=== PATIENT | female | born 1930 | race Caucasian/White ===

== ENCOUNTER 2019-05-28 15:36 | Inpatient (IN) | payer OTHER ==
[~2019-05-28] VITALS: Ht 162.6 cm; Wt 54.6 kg
--- NOTE | 2019-05-28 16:03 | NUR ---
PT BIBA FROM HOME DUE TO FAMILY STS PT HAS AN UNWITNESS FALL. PER FAMILY PT HAS NORMAL "CONFUSION" BUT SEEMED MORE CONFUSED TODAY. PT ARRIVED WITH C-COLLER DUE TO PT STS THAT SHE HAS FAUSTINO ARM NUMBNESS. PER PT DENIES ANY CHEST PAIN/ABDOMINAL PAIN. PT DENIES ANY DIZZINESS AT THIS TIME. PT IS ALERT AND ORIENTED SPEAKING IN CLEAR SLOW SENTENCES. PT HAS NOTED MASS TO TOP OF HEAD. 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 PT HAS GENERALIZED WEAKNESS SHE CAN TURN SLOWLY. VSS. RESP E/U. PT PLACED ON CM. WILL CONTINUE TO MONITOR.
--- NOTE | 2019-05-28 16:03 | NUR ---
PT +INCONTINENTS. PT CLEANED AND CHANGED. PT SKINS PALE, COOL, DIAPHORETIC
[2019-05-28 16:15] LABS: BASOPHIL % 0 % (0-2); PLATELET COUNT 246 x10^3mcL (130-400); RED CELL DISTRIBUTION WIDTH 13.2 % (11.5-14.5)
--- NOTE | 2019-05-28 16:15 | NUR ---
WARMING PRECAUTIONS ON PLACE.
--- NOTE | 2019-05-28 16:29 | NUR ---
DAUGHTER AT BEDSIDE.
[2019-05-28 16:33] LABS: microscopic required? YES; urine erythrocyte 1+ (NEGATIVE)
[2019-05-28] MEDS ORDERED: NATURAL IRON65 MG (16:38)
[2019-05-28] MEDS ORDERED: MULTI-VITAMINS1 TAB (16:39)
[2019-05-28] MEDS ORDERED: CARBIDOPA/LEVOD1 TAB (16:39)
[2019-05-28] MEDS ORDERED: LISINOPRIL2.5 MG (16:40)
[2019-05-28] MEDS ORDERED: METFORMIN HYDR500 M1 (16:40)
[2019-05-28] MEDS ORDERED: TOPROL XL25 MG (16:40)
[2019-05-28] MEDS ORDERED: SIMVASTATIN10 M1 (16:40)
[2019-05-28 16:43] LABS: CALCIUM 8.7 mg/dL (8.5-10.1); CARBON DIOXIDE 26.6 mmol/L (21-32); CHLORIDE SERUM 102 mmol/L (98-107); GLUCOSE SERUM 269 mg/dL (74-106); POTASSIUM SERUM 3.6 mmol/L (3.5-5.1); SODIUM SERUM 141 mmol/L (136-145)
[2019-05-28 16:47] LABS: ALBUMIN 3.7 g/dL (3.4-5.0); ALKALINE PHOSPHATASE 37 U/L (46-116); ALT/SGPT 9 U/L (14-59); AST/SGOT 27 U/L (15-37); BILIRUBIN TOTAL 0.5 mg/dL (0.20-1.00); CHOLESTEROL 156 mg/dL (<200); TOTAL PROTEIN, SERUM 7.5 g/dL (6.4-8.2)
--- NOTE | 2019-05-28 17:27 | NUR ---
PT IN POSITION OF COMFORT, DENIES ANY PAIN AT THIS TIME..VSS. RESP E/U. WILL CONTINUE TO MONITOR.
--- NOTE | 2019-05-28 18:45 | NUR ---
1800ML YELLOW CLEAR URINE NOTED IN MAHONEY BAG.
--- NOTE | 2019-05-28 19:37 | NUR ---
REPORT GIVEN TO JAS HERNÁNDEZ TO ASSUME CARE OF PT.
--- NOTE | 2019-05-28 20:10 | NUR ---
PT WAS RECEIVED BY PRIMARY NURSE ALEX FROM ED VIA [email or web address]. PT CAME IN DUE TO UNWITNESSED FALL, WAS SEEN BY PT'S GRANDSON ON THE FLOOR. PT IS AAOX2 (PERSON, PLACE AND BIRTHDATE). ABLE TO FOLLOW SIMPLE COMMANDS. 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 NO FACIAL DROOP/ARM DRIFT NOTED. NO SOB NOTED, LUNG SOUNDS CTA. DENIES CHEST PAIN/PRESSURE, SR W/ BBB AND DEPRESSED ST. DENIES ABDOMINAL DISCOMFORT. BOWEL SOUNDS ACTIVE. W/ JORDANIAN 16 MAHONEY CATHETER DRAINING W/ YELLOW COLORED URINE. W/ SCABS ON LLE, ECCHYMOSIS ON THE RUE, MASS-LIKE GROWTH ON THE HEAD, AND LINEAR DISCOLORATION BELOW THE RIGHT EYE, RENETTA. PT IS PAUMA, W/ RIGHT EAR HEARING AID. GENERALIZED WEAKNESS NOTED. SIDE RAILS UPX2. CALL LIGHT ON REACH. HOB ELEVATED AT 30 DEG. ENDORSED TO PRIMARY NURSE ALEX FOR CONTINUITY OF CARE
[2019-05-28 20:15] VITALS: BP 126/69
[2019-05-28 20:18] VITALS: Ht 162.6 cm; Wt 54.6 kg
--- NOTE | 2019-05-28 21:34 | NUR ---
RECEIVED PT FROM ED, NO ACUTE DISTRESS. A/O X2, HX OF DEMENTIA. [place]. TELE #23 SHOWING SINUS RHYTHM WITH BBB, DENIES CHEST PAIN. PULSES PALPABLE IN ALL EXTREMITIES, NO EDEMA NOTED. LUNG SOUNDS CTA BILATERALLY, DENIES SOB. BOWELS SOUNDS ACTIVE, LAST BM 05/27/19. MAHONEY CATHETER IN PLACE, YELLOW URINE NOTED. GENERALIZED WEAKNESS. ECCHYMOSIS TO RUE. 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 IV PATENT AND INTACT. ORIENTED PT TO ROOM, BED IN LOWEST POSITION, SIDE RAILS UP X2, CALL LIGHT WITHIN REACH. FAMILY AT BEDSIDE. WILL CONTINUE TO MONITOR.
--- NOTE | 2019-05-29 00:20 | NUR ---
PT CURRENTLY RESTING IN BED, NO ACUTE DISTRESS. WILL CONTINUE TO MONITOR.
[2019-05-29 06:00] VITALS: BP 119/43
[2019-05-29 06:30] LABS: BASOPHIL % 0.3 % (0-2); PLATELET COUNT 218 x10^3mcL (130-400); RED CELL DISTRIBUTION WIDTH 13.4 % (11.5-14.5)
[2019-05-29 06:58] LABS: CALCIUM 8.6 mg/dL (8.5-10.1); CARBON DIOXIDE 24.5 mmol/L (21-32); CHLORIDE SERUM 104 mmol/L (98-107); CREATININE SERUM 1.1 mg/dL (0.6-1.0); GLUCOSE SERUM 121 mg/dL (74-106); MAGNESIUM 1.4 mg/dL (1.8-2.4); PHOSPHOROUS 3.7 mg/dL (2.5-4.9); POTASSIUM SERUM 3.7 mmol/L (3.5-5.1); SODIUM SERUM 141 mmol/L (136-145)
--- NOTE | 2019-05-29 07:05 | NUR ---
RECEIVED PT FROM NIGHT NURSE. PT IS LAYING DOWN IN BED WITH HOB UP RESTING WITH EYES CLOSED. PT LOOKS TO BE IN NO ACUTE DISTRESS AT THIS TIME. RESPIRATIONS EVEN AND UNLABORED ON ROOM AIR. IV SITE PATENT WITH NO SIGNS OF ERYTHEMA OR SWELLING WITH IV FLUIDS INFUSING. TELE MONITOR PRESENT. CALL LIGHT WITHIN REACH. WILL CONITNUE TO MONITOR.
[2019-05-29 08:33] VITALS: BP 138/61
--- NOTE | 2019-05-29 09:15 | NUR ---
PT IS AWAKE, ALERT AND ORIENTED TO PERSON, NAME AND BIRTHDAY. PT UNAWARE THAT SHE IS IN THE HOSPITAL AND WHAT YEAR IT IS. REORIENTED PT TO PLACE AND INFORMED PT THE REASON THAT SHE IS IN THE HOSPITAL. INFORMED PT THAT HER FAMILY KNOWS THAT SHE IS IN THE HOSPITAL. PT ABLE TO FOLLOW SIMPLE COMMANDS. PT VERY [place] TO RIGHT EAR AND DEAF TO LEFT EAR. HEARING AID AT BEDSIDE. PT RESPONSIVE TO VERBAL STIMULI. MADE PT COMFORTABLE IN BED, CALL LIGHT WITHIN REACH. WILL CONTINUE TO MONITOR.
--- NOTE | 2019-05-29 11:50 | NUR ---
CHECKED PT TEMPERATURE VIA AXILLARY AND IS 100.4. REMOVED PT'S BLANKETS AND TURNED OFF HEATER AND TURNED ON AC. WILL CONTINUE TO MONITOR.
[2019-05-29 12:13] VITALS: BP 114/42
--- NOTE | 2019-05-29 12:23 | NUR ---
RECHECKED PT TEMPERATURE AFTER COOLING MEASURE IMPLEMENTED AND PT CURRENT TEMP IS 99.5. PT LOOKS TO BE IN NO ACUTE DISTRESS AT THIS TIME. WILL CONITNUE TO MONITOR.
--- NOTE | 2019-05-29 14:30 | NUR ---
RECEIVED A CALL FROM LAB ASKING IF A LACTIC ACID STILL NEEDED TO BE DRAWN FOR THE PT. INFORMED THE LAB THAT A LACTIC ACID WAS DRAWN 05/28/19 AT 2044 AND RESULTS ARE STILL PENDING. LAB ASKING TO CHECK WITH TO SEE IF STILL NEEDING LACTIC ACID. WILL CHECK WITH
--- NOTE | 2019-05-29 15:15 | NUR ---
DR. KIDD CONFIRMED THAT A LACTIC ACID IS STILL NEEDED FOR THE PATIENT. WILL PUT CARRY OUT ORDERS.
[2019-05-29 18:03] VITALS: BP 156/48
--- NOTE | 2019-05-29 18:34 | NUR ---
PT IS LAYING DOWN IN BED WITH HOB UP. PT LOOKS TO BE IN NO ACUTE DISTRESS AT THIS TIME AND DENIES ANY PAIN. RESPIRATIONS EVEN AND UNLABORED ON ROOM AIR. IV SITE PATENT WITH NO SIGNS OF ERYTHEMA OR SWELLING WITH IV FLUIDS INFUSING. MAHONEY CATHETER PRESENT DRAINING CLEAR YELLOW URINE. TELE MONITOR PRESENT. CALL LIGHT WITHIN REACH. WILL ENDORSE TO ONCOMING SHIFT.
[2019-05-29 19:20] VITALS: BP 123/45
--- NOTE | 2019-05-29 20:00 | NUR ---
RECEIVED PT IN BED, RESTING QUIETLY, DENIES PAIN OR ANY DISCOMFORT. RESP. EVEN AND UNLABORED. ON ROOM AIR, NO ACUTE DISTRESS NOTED. TELE MONITOR, IN PLACE, DENIES CP OR PRESSURE. AFEBRILE AND VITAL SIGNS STABLE. IVF, NS AT 70ML/HR, INTACT AND INFUSING VIA LT WRIST, SITE CLEAR. MAHONEY CATH INTACT AND DRAINING YELLOW COLOR URINE. ASSISTED WITH HS CARE. CALL LIGHT WITHIN REACH.
--- NOTE | 2019-05-30 01:05 | NUR ---
RESTING QUIETLY IN BED,WITH EYES CLOSED, APPEARS ASLEEP, EASILY AROUSABLE. RESP. EVEN AND UNLABORED. NO DISTRESS NOTED. WILL CONTINUE TO MONITOR.
[2019-05-30 05:48] VITALS: BP 147/46
--- NOTE | 2019-05-30 06:40 | NUR ---
SLEPT WELL. NO SIGNIFICANT CHANGE NOTED IN PT,S CONDITION. AFEBRILE AND VITAL SIGNS STABLE. RESP. EVEN AND UNLABORED. NO ACUTE DISTRESS NOTED. DUE MEDS GIVEN ORDERED. ALANA. WELL. IVF INTACT AND INFUSING WELL, SITE CLEAR. MAHONEY CATH INTACT AND PATENT. KEPT COMFORTABLE. WILL ENDORSE TO INCOMING NURSE.
[2019-05-30 07:07] LABS: BASOPHIL % 0.3 % (0-2); PLATELET COUNT 196 x10^3mcL (130-400); RED CELL DISTRIBUTION WIDTH 13.6 % (11.5-14.5)
[2019-05-30 07:20] LABS: CARBON DIOXIDE 26.1 mmol/L (21-32); CHLORIDE SERUM 109 mmol/L (98-107); GLUCOSE SERUM 110 mg/dL (74-106); MAGNESIUM 1.7 mg/dL (1.8-2.4); PHOSPHOROUS 3.3 mg/dL (2.5-4.9); POTASSIUM SERUM 3.8 mmol/L (3.5-5.1); SODIUM SERUM 144 mmol/L (136-145)
--- NOTE | 2019-05-30 07:40 | NUR ---
RECIEVED REPORT FROM [facility] NURSE TIP. PATIENT CURRENTLY ASLEEP IN BED. IV TO LEFT WRIST INFUSING NS AT 70/HOUR. BED IN THE LOW POSITION. CALL LIGHT WITHIN REACH. SAFETY PRECAUTIONS IN PLACE. WILL CONTINUE TO MONITOR.
[2019-05-30 08:19] VITALS: BP 143/46
[2019-05-30 16:59] VITALS: BP 122/35
--- NOTE | 2019-05-30 17:58 | NUR ---
PATIENT CURRENTLY OBSERVED AWAKE AND ALERT TO PERSON PLACE TIME AND REASON FOR STAY. PATIENT DOES NOT REPORT PAIN OR DISCOMFORT. NS INFUSING TO LEFT WRIST AT 70/HOUR. MAHONEY DRAINING YELLOW URINE TO GRAVITY. RESPIRATIONS EQUAL AND UNLABORED. BED IN THE LOW POSITION. SAFETY PRECAUTIONS IN PLACE. WILL ENDORSE CARE TO NIGHT NURSE.
--- NOTE | 2019-05-30 20:00 | NUR ---
A/A/O X2, FAMILY AT BEDSIDE. PT DENIES DIZZINESS AND HEADACHE. BREATH SOUNDS CLEAR. BREATHING EVEN AND UNLABORED ON ROOM AIR. DENIES CHEST PAIN AND PRESSURE. BOWEL SOUNDS ACTIVE. NO C/O N/V AND ABD PAIN. WOUND WITH SCAB NOTED ON LLE. MASS LIKE ON THE TOP OF THE HEAD NOTED RENETTA. IV INTACT ON THE LEFT WRIST INFUSING WITH NS AT 70 ML/HR. MAHONEY CATH INTACT AND DRAINING TO GRAVITY WITH YELLOW URINE WITH WHITE SEDIMENTS. MADE PT COMFORTABLE. PLACED CALL LIGHT WITH IN REACH. WILL CONTINUE TO MONITOR.
[2019-05-30 20:57] VITALS: BP 136/50
--- NOTE | 2019-05-31 00:27 | NUR ---
PT RESTING WITH EYES CLOSED. NO DISTRESS AND DISCOMFORT NOTED. WILL CONTINUE TO MONITOR.
[2019-05-31 05:06] VITALS: BP 137/52
--- NOTE | 2019-05-31 06:33 | NUR ---
PT RESTING WITH EYES CLOSED. EASILY AROUSABLE WITH VERBAL STIMULI. NO SIGNIFICANT CHANGES NOTED. MADE PT COMFORTABLE. WILL ENDORSE TO THE AM NURSE ACCORDINGLY.
[2019-05-31 07:13] LABS: BASOPHIL % 0.3 % (0-2); PLATELET COUNT 197 x10^3mcL (130-400); RED CELL DISTRIBUTION WIDTH 13.4 % (11.5-14.5)
[2019-05-31 08:23] LABS: CALCIUM 8.2 mg/dL (8.5-10.1); CARBON DIOXIDE 24.1 mmol/L (21-32); CHLORIDE SERUM 108 mmol/L (98-107); CREATININE SERUM 0.9 mg/dL (0.6-1.0); GLUCOSE SERUM 138 mg/dL (74-106); POTASSIUM SERUM 3.8 mmol/L (3.5-5.1); SODIUM SERUM 141 mmol/L (136-145)
[2019-05-31 08:42] VITALS: BP 161/60
--- NOTE | 2019-05-31 10:22 | NUR ---
AAO TO PERSON AND PLACE. TELE # 23 SR WITH BBB. LUNGS CTA. NO SOB. O2 SAT ON RA 97%. BS'S ACTIVE TIMES 4. ATE 60% BRKF. GROWTH TO TOP OF SCALP NEAR FOREHEAD, CDI. BS'S ACTIVE TIMES 4. MILLE LACS TO LEFT EAR, HEARING AID IN LABELED CONTAINER AT BEDSIDE. DEAF RIGHT EAR. LEFT KNEE WITH ALMOST HEALED SCAB, CDI AND RENETTA. WITH TREMORS WITH MOVEMENT. MAHONEY CATH DRAINING YELLOW URINE TO BSD.
[2019-05-31 12:12] VITALS: BP 148/49
[2019-05-31 16:44] VITALS: BP 151/58
--- NOTE | 2019-05-31 17:52 | NUR ---
AAO TO PERSON AND PLACE. TELE # 23 SR WITH A BBB. FEEDER. HAS TREMORS WITH MOVEMENT. COOPERATIVE. RIGHT HEARING AID IN LABELED CLOSED CONTAINER ON HER BEDSIDE STAND. NO C/O PAIN. MAHONEY CATH DRAINING YELLOW URINE TO BSD. NO C/O PAIN.
[2019-05-31 20:36] VITALS: BP 154/40
[2019-06-01 05:21] VITALS: BP 153/47
--- NOTE | 2019-06-01 05:50 | NUR ---
RECIEVED REPORT FROM DAY SHIFT NURSE. PT ALERT IN BED. NO C/O PAIN. NO SIGNS OF DISCOMFORT. WILL CONTINUE TO MONIOR. CALL LIGHT WITHIN REACH,
--- NOTE | 2019-06-01 07:30 | NUR ---
PT ENDORSE TO ME THIS MORNING, LAYING IN BED RESTING. AA/O X3 AT TIMES PAKISTANI AND FRISIAN SPK. BREATHING EVEN AND UNLABORED ON RA, NO ACUTE RESP DISTRESS OR SOB NOTED. BOWEL SOUNDS ACTIVE IN ALL FOUR QUADS. MAHONEY INTACT AND PATENT/ DRAINING CLEAR YELLOW URINE NOTED. GEN WEAKNESS, ASSIST WITH REPOSITIONING. ECCHYMOSIS BUE AND LUE SCABS NOTED. RIGHT EYE DISCOLORATION NOTED, MASS GROWTH NOTED TO TOP OF HEAD RENETTA. IV TO THE L WRIST INTACT AND PATENT/ NO REDNESS OR SWELLING NOTED. WILL CONTINUE TO MONITOR. BED ALARM ON, X2 SIDE RAIL UP.
[2019-06-01 08:56] VITALS: BP 152/56
--- NOTE | 2019-06-01 10:51 | NUR ---
TOTAL MAHONEY OUTPUT 500ML/HR CLEAR YELLOW URINE NOTED
[2019-06-01 12:13] VITALS: BP 127/48
[2019-06-01 16:46] VITALS: BP 141/54
--- NOTE | 2019-06-01 18:22 | NUR ---
NO ACUTE CHANGES AT THIS TIME, NO ACUTE RESP DISTRESS OR SOB NOTED. PT AA/O X3 FAMILY AT BEDSIDE. TOLERATED 100% OF DINNER WITH FAMILY ASSIST. MAHONEY INTACT AND PATENT/ DRAINED TOTAL OF 1100 DARK YELLOW URINE. IV TO THE L WRIST INTACT AND PATENT INFUSING NS AT 70ML/HR, NO REDNESS OR SWELLING NOTED. CALL LIGHT IN REACH. BED IN LOW POSITION. X2 SIDE RAIL UP. WILL CONTINUE TO MONITOR.
--- NOTE | 2019-06-01 18:25 | NUR ---
WILL ENDORSE TO INCOMING RN.
--- NOTE | 2019-06-01 18:30 | NUR ---
MAHONEY CARE DONE.
[2019-06-01 19:38] VITALS: BP 138/48
--- NOTE | 2019-06-01 19:50 | NUR ---
RECEIVED PT FROM PREVIOUS SHIFT. PT A/OX3. DENIES PAIN. DENIES SOB ON RA. F/C DRAINING TO GRAVITY WITH YELLOW OUTPUT. IV TO L WRIST PATENT AND INFUSING NS AT 70ML/HR WITH NO S/S OF INFILTRATION. CALL LIGHT WITHIN REACH, BED IN LOW POSITION. WILL CONTINUE TO MONITOR.
--- NOTE | 2019-06-02 00:15 | NUR ---
PT RESTING IN NO ACUTE DISTRESS. RR EVEN/UNLABORED. CALL LIGHT WITHIN REACH, BED IN LOW POSITION. WILL CONTINUE TO MONITOR.
[2019-06-02 05:18] VITALS: BP 136/61
[2019-06-02 07:02] LABS: BASOPHIL % 0.3 % (0-2); PLATELET COUNT 218 x10^3mcL (130-400); RED CELL DISTRIBUTION WIDTH 13.6 % (11.5-14.5)
--- NOTE | 2019-06-02 07:09 | NUR ---
RECEIVED PT FROM PHYSICAL CHEMIST NURSE. PT IN BED SLEEPING, AROUSABLE, RESP E/U ON RA. NO SIGNS OF ACUTE DISTRESS NOTED. IV TO L WRIST W/ NO SIGNS OF INFILTRATION, IVF INFUSING WELL. MAHONEY IN PLACE DRAINING YELLOW URINE TO GRAVITY. BED IN LOWEST POSITION AND CALL LIGHT WITHIN REACH. WILL CONTINUE TO MONITOR.
[2019-06-02 07:38] LABS: CALCIUM 7.8 mg/dL (8.5-10.1); CARBON DIOXIDE 23.9 mmol/L (21-32); CHLORIDE SERUM 106 mmol/L (98-107); CREATININE SERUM 0.9 mg/dL (0.6-1.0); GLUCOSE SERUM 176 mg/dL (74-106); POTASSIUM SERUM 4.1 mmol/L (3.5-5.1); SODIUM SERUM 138 mmol/L (136-145)
[2019-06-02 08:38] VITALS: BP 147/51
--- NOTE | 2019-06-02 10:30 | NUR ---
PHONE CALL MADE TO [facility] FOR PT REPORT, NO ANSWER AT THIS TIME. WILL FOLLOW UP.
--- NOTE | 2019-06-02 11:04 | NUR ---
PT REPORT GIVEN TO DINAH MARTINEZ [facility].
[2019-06-02 11:14] VITALS: BP 147/51
--- NOTE | 2019-06-02 11:37 | NUR ---
PT TRANSFERRED TO [facility] BY [employer]. SON IN LAW MORENO GONZÁLES AND NIECE J LUIS APARICIO NOTIFIED BY CASE MANAGEMENT. PT AOX3, RESP E/U ON RA, VS STABLE, DENIES PAIN. IV TO L WRIST REMOVED, CATH INTACT, GAUZE DRESSING APPLIED. MAHONEY CATH REMOVED W/ 400 ML OF YELLOW URINE OUTPUT EMPTIED. TRANSFER AND DISCHARGE PACKET COSIGNED W/ [employer] IFGUEREDO.
== END 2019-06-02 11:47 | DRG 640 ==
LOC: ED 15:36 → DU 18:57 → MU 05-31 18:22
PROVIDERS: Emergency Medicine; Family Medicine; ADMIT Internal Medicine
DX: E86.0 Dehydration (principal); N17.0 Acute kidney failure with tubular necrosis; I10 Essential (primary) hypertension; R68.0 Hypothermia, not associated with low environmental temperature; G20 Parkinson's disease; F02.80 Dementia in other diseases classified elsewhere, unspecified severity, without behavioral disturbance, psychotic disturbance, mood disturbance, and anxiety; E11.9 Type 2 diabetes mellitus without complications; E78.5 Hyperlipidemia, unspecified; Z79.84 Long term (current) use of oral hypoglycemic drugs; Z68.20 Body mass index [BMI] 20.0-20.9, adult
CPT/HCPCS: 82962; 97110-GP; 97112-GP; 97116-GP; 97530-GP; G0378; J3475; J7030; Q0092